=== PATIENT | male | born 1995 | race Caucasian/White ===

== ENCOUNTER 2021-05-03 12:14 | Outpatient (CLI) | payer OTHER, SELFPAY ==
--- NOTE | 2021-05-03 | ECG_ITS ---
Measurements Intervals [place] Rate: 93 P: 69 TN: 152 QRS: 74 QRSD: 108 T: 46 QT: 336 QTc: 418 Interpretive Statements SINUS RHYTHM NORMAL ECG Electronically Signed On 05-03-2021 14:38:44 [employer]OT[employer] MECH[employer]IC by Alonso Suarez D.O.
== END 2021-05-03 12:15 | disposition home or self-care (01) ==
PROVIDERS: PCP Family Medicine
DX: Z51.81 Encounter for therapeutic drug level monitoring (principal); Z79.899 Other long term (current) drug therapy
CPT/HCPCS: 93005